=== PATIENT | female | born 1930 | race Caucasian/White ===

== ENCOUNTER 2016-09-13 14:06 | Inpatient (IN) | payer MEDICARE, BC ==
[~2016-09-13] VITALS: Ht 162.6 cm; Wt 54.0 kg
[2016-09-13] MEDS ORDERED: CIPR-262 PO (14:48)
[2016-09-13] MEDS ORDERED: FLEC50TA2 PO (14:48)
[2016-09-13] MEDS ORDERED: MELO-270 PO (14:48)
[2016-09-13] MEDS ORDERED: VALS80TA2 PO (14:50)
[2016-09-13] MEDS ORDERED: LEVO112T5 PO (14:50)
[2016-09-13] MEDS ORDERED: METO-304 PO (14:51)
[2016-09-13 16:00] VITALS: BP 143/89
--- NOTE | 2016-09-13 19:30 | NUR ---
Received report from Juliocesar MCKEON. Patient in bed comfortably, alert, verbally responsive, able to make needs know, not in acute distress. She denies any pain or discomfort at this time. Assisted to her needs. Call light placed within reach.
[2016-09-14 06:29] LABS: BASOPHILS % (AUTO) 0.7 % (0.0-2.0); EOSINOPHILS # (AUTO) 0.1 K/uL (0.0-0.7); EOSINOPHILS % (AUTO) 1.7 % (0.0-7.0); HEMATOCRIT 34.5 % (31.2-41.9); LYMPHOCYTES # (AUTO) 0.6 K/uL (20.0-40.0); LYMPHOCYTES % (AUTO) 8.3 % (20.5-51.5); MEAN CORPUSCULAR HEMOGLOBIN 35.1 uug (24.7-32.8); MEAN CORPUSCULAR HGB CONC 35 g/dL (32.3-35.6); MEAN CORPUSCULAR VOLUME 101.1 fL (75.5-95.3); MONOCYTES # (AUTO) 0.8 K/uL (2.0-10.0); MONOCYTES % (AUTO) 11.9 % (0.0-11.0); NEUTROPHILS # (AUTO) 5.6 K/uL (1.8-8.9); NEUTROPHILS % (AUTO) 77.4 % (38.5-71.5); PLATELET COUNT (AUTO) 177 K/uL (179-408); RED BLOOD CELL COUNT(AUTO) 3.42 MIL/uL (3.63-4.92); RED CELL DISTRIBUTION WIDTH 12.5 % (12.3-17.7); WHITE BLOOD COUNT (AUTO) 7.1 K/uL (3.8-11.8)
[2016-09-14 06:36] LABS: CALCIUM 8.7 mg/dL (8.5-10.1); CREATININE 0.7 mg/dL (0.6-1.3); POTASSIUM 3.8 mmol/L (3.5-5.1)
[2016-09-14 06:48] LABS: BAND % (MANUAL) 2 % (0-10); LYMPHOCYTES % (MANUAL) 15 % (20-40); NEUTROPHILS % (MANUAL) 70 % (42-75)
[2016-09-14 06:49] LABS: EOSINOPHILS % (MANUAL) 2 % (0-8); MONOCYTES % (MANUAL) 11 % (2-10)
[2016-09-14] MEDS: LEVOTHYROXINE SODIUM 112 MCG TABLET PO SCH (07:13)
--- NOTE | 2016-09-14 07:40 | NUR ---
Patient received from manager night, patient laying in bed comfortably, no signs of acute distress noted. No verbalized needs at this time, no complaints of pain. VS WNL, on RA. Safety and fall precautions maintained, bed in low position. Call light within reach.
[2016-09-14 08:00] VITALS: BP 142/87
[2016-09-14] MEDS: MELOXICAM 7.5 MG TABLET PO SCH (08:13)
[2016-09-14] MEDS: VALSARTAN 80 MG TABLET PO SCH (08:13)
[2016-09-14] MEDS: METOPROLOL SUCCINATE XL 50 MG TAB.SR.24H PO SCH (08:14)
[2016-09-14] MEDS: FLECAINIDE ACETATE 100 MG TABLET PO SCH (08:14)
[2016-09-14] MEDS ORDERED: CIPROFLOXACIN HCL 500 MG PO SCH (09:00)
[2016-09-14] MEDS ORDERED: FLECAINIDE ACETATE 50 MG PO SCH (09:00)
--- NOTE | 2016-09-14 12:30 | NUR ---
Patient given tramadol 1 tab for complaints of pain 12/28. Patient going to PT session, safety and fall precautions maintained while transferring to gym.
--- NOTE | 2016-09-14 13:00 | NUR ---
Informed by patient and family members (daughter and ) that patient received 1 tab [place] this morning at 1030, unwitnessed, without notification to any staff. VS WNL, no signs of hypotension or overdose. Patient AAOx4, no complaints of dizziness or confusion. Dr. Orr notified, verified notification. No further orders.
[2016-09-14 20:15] VITALS: BP 108/52
--- NOTE | 2016-09-15 01:07 | NUR ---
1900 Received patient in bed, alert, verbally responsive, not in acute distress. She denies any pain or discomfort at this time. Patient 4 pill containers (valsartan, flecainide, metoprolol and levothyroxine) of patient's own medications at bedside and per patient her family brought it in. Informed patient that no medications should be kept at bedside for safety and that it will be kept at pharmacy per hospital policy. Patient verbalized understanding and agreed. Gave patient's own medications to pharmacy care of [place]. [address] Dr. Orr saw patient with no new order. Assisted patient with her needs. Call light placed within reach and reminded to always use call light for assistance.
[2016-09-15 03:57] VITALS: BP 129/74
[2016-09-15] MEDS: LEVOTHYROXINE SODIUM 112 MCG TABLET PO SCH (07:05)
[2016-09-15] MEDS: MELOXICAM 7.5 MG TABLET PO SCH (08:28)
[2016-09-15] MEDS: FLECAINIDE ACETATE 100 MG TABLET PO SCH ×2 (08:28→20:32)
[2016-09-15] MEDS: VALSARTAN 80 MG TABLET PO SCH (08:32)
[2016-09-15] MEDS: TRAMADOL HCL 50 MG TABLET PO PRN ×4 (08:33→13:42)
[2016-09-15] MEDS: METOPROLOL SUCCINATE XL 50 MG TAB.SR.24H PO SCH (08:35)
--- NOTE | 2016-09-15 14:51 | NUR ---
DAILY NOTES IN BED RESTING QUIETLY WITH CPM GOING [facility]. UP FOR THERAPY THIS AM [facility]. UP OOB TO BRX2 [facility]. OOB WITH LEG IMMOBILIZER IN PLACE. MEDICATED FOR PAIN PRIOR TO AM THERAPY AND AGAIN DURING AFTERNOON THERAPY WITH 50MG TRAMADOL EACH TIME
--- NOTE | 2016-09-15 19:30 | NUR ---
RECEIVED PATIENT LYING QUIETLY IN BED RESTING WITHOUT C/O LEFT KNEE PAIN. ASSISTED TO BATHROOM WITH WALKER AND CONTACT GUARD ASSIST.ABLE TO PULL UNDERWEAR DOWN, WIPE HERSELF, AND PULL UNDERWEAR UP INDEPENDENTLY.ABLE TO INDEPENDENTLY PULL HERSELF UP TO THE TOP OF THE BED WHEN RETURNING FROM THE TOILET.DOES NOT REQUEST ANYTHING FOR PAIN AT THIS TIME. cALL LIGHT WITHIN REACH AND BED ALARM ON AAT.
[2016-09-15] MEDS: DOCUSATE SODIUM 100 MG CAPSULE PO SCH (20:32)
--- NOTE | 2016-09-16 06:25 | NUR ---
SLEPT WELL THROUGH THE NIGHT. AMBULATED TO BATHROOM X3 WITH ASSISTANCE OF WALKER AND CONTACT GUARD. NEEDS MINIMAL ASSISTANCE TO STAND UP FROM BED TO WALKER IN ORDER TO HELP FLEX HER KNEE. DID NOT TAKE ANY PAIN MEDS THIS SHIFT. WAS ABLE TO SLEEP COMFORTABLY WITHOUT THE TRAMADOL. WHEN ASKED, SHE SAYS SHE ONLY HAS PAIN WHEN SHE AMBULATES TO TOILET AND NONE WHEN SHE IS BACK IN BED. CALL LIGHT WITHIN REACH
[2016-09-16] MEDS: LEVOTHYROXINE SODIUM 112 MCG TABLET PO SCH (07:06)
[2016-09-16] MEDS: TRAMADOL HCL 50 MG TABLET PO PRN ×2 (07:48→10:56)
[2016-09-16] MEDS: FLECAINIDE ACETATE 100 MG TABLET PO SCH ×2 (07:49→20:24)
[2016-09-16] MEDS: MELOXICAM 7.5 MG TABLET PO SCH (08:09)
[2016-09-16] MEDS: VALSARTAN 80 MG TABLET PO SCH (08:10)
[2016-09-16] MEDS: METOPROLOL SUCCINATE XL 50 MG TAB.SR.24H PO SCH (08:10)
[2016-09-16 08:11] VITALS: BP 123/63
--- NOTE | 2016-09-16 19:35 | NUR ---
nsg: pt received awake, alert, no acute distress noted. assisted to the bathroom using fww. dressing on left knee dry and intact. denies pain. cont to monitor.
[2016-09-16 19:46] VITALS: BP 112/57
[2016-09-16] MEDS: DOCUSATE SODIUM 100 MG CAPSULE PO SCH (20:24)
[2016-09-17] MEDS: TRAMADOL HCL 50 MG TABLET PO PRN ×3 (00:08→11:34)
--- NOTE | 2016-09-17 06:00 | NUR ---
nsg: no acute distress noted. denies discomfort. awake. all needs attended.
--- NOTE | 2016-09-17 06:00 | NUR ---
nsg: slept well throughout the night. medicated with pain med x 1.
[2016-09-17] MEDS: LEVOTHYROXINE SODIUM 112 MCG TABLET PO SCH (06:38)
--- NOTE | 2016-09-17 07:17 | NUR ---
Patient received from overnight associate, laying comfortably in bed. No signs of acute distress noted, no complaints of pain at this time. VS WNL. SCD's on both legs. Will start CPM machine after breakfast, per patient's request. No other verbalized needs at this time. Safety and fall precautions maintained. Call light within reach.
[2016-09-17 08:11] VITALS: BP 124/71
[2016-09-17] MEDS: MELOXICAM 7.5 MG TABLET PO SCH (08:41)
[2016-09-17] MEDS: FLECAINIDE ACETATE 100 MG TABLET PO SCH ×2 (08:41→20:18)
[2016-09-17] MEDS: METOPROLOL SUCCINATE XL 50 MG TAB.SR.24H PO SCH (08:41)
[2016-09-17] MEDS: VALSARTAN 80 MG TABLET PO SCH (08:42)
--- NOTE | 2016-09-17 19:40 | NUR ---
Received patient resting on her bed with no s/s of distress. No verbalization of pain at this time. Call light within reach. Encouraged to call for assistance whenever needed. Will continue to monitor.
[2016-09-17] MEDS: DOCUSATE SODIUM 100 MG CAPSULE PO SCH (20:18)
[2016-09-17 23:30] VITALS: BP 131/72
[2016-09-18] MEDS: LEVOTHYROXINE SODIUM 112 MCG TABLET PO SCH (06:25)
--- NOTE | 2016-09-18 06:54 | NUR ---
Patient resting on her bed with no s/s of distress. No complaints of pain at this time. Due meds given. Needs attended. Frequent checks done. Kept clean and comfortable. Supervised/assisted during bathroom trips. Endorsed accordingly.
--- NOTE | 2016-09-18 08:00 | NUR ---
Received patient awake in bed. No signs and symptoms of distress noted. No other complaints at this time. Call light within reach. Safety and fall precautions observed. Will continue to monitor.
[2016-09-18 08:13] LABS: CALCIUM 9.3 mg/dL (8.5-10.1); CREATININE 0.9 mg/dL (0.6-1.3); POTASSIUM 4.6 mmol/L (3.5-5.1)
[2016-09-18] MEDS: MELOXICAM 7.5 MG TABLET PO SCH (08:43)
[2016-09-18] MEDS: FLECAINIDE ACETATE 100 MG TABLET PO SCH ×2 (08:48→20:54)
[2016-09-18] MEDS ORDERED: BISACODYL 10 MG SUPP.RECT RC PRN (11:45)
--- NOTE | 2016-09-18 11:58 | NUR ---
11:45 Notified Danyel Mendoza regarding patient's concern of difficulty having bowel movement and MD ordered Dulcolax suppository 10mg per rectum PRN daily for constipation. Order carried out.
[2016-09-18] MEDS: VALSARTAN 80 MG TABLET PO SCH (12:26)
[2016-09-18] MEDS: METOPROLOL SUCCINATE XL 50 MG TAB.SR.24H PO SCH (12:26)
[2016-09-18] MEDS: TRAMADOL HCL 50 MG TABLET PO PRN (14:18)
--- NOTE | 2016-09-18 18:35 | NUR ---
Patient tolerating CPM well. No complaints at this time. Endorsed CPM therapy until 20:00 tonight. Report given to night shift supervisor
--- NOTE | 2016-09-18 19:30 | NUR ---
Received patient lying in bed with no s/s od distress. Denies pain.Call light within reach. Encouraged to call for assistance for any need to ensure safety. Will continue to monitor.
[2016-09-18] MEDS: DOCUSATE SODIUM 100 MG CAPSULE PO SCH (20:54)
[2016-09-19 00:12] VITALS: BP 118/60
[2016-09-19] MEDS: LEVOTHYROXINE SODIUM 112 MCG TABLET PO SCH (06:26)
--- NOTE | 2016-09-19 06:47 | NUR ---
Patient awake in bed with so s/s of distress. No complaints of pain. Due meds given. Call light kept within reach. Safety and comfort measures observed. Frequent checks done throughout shift. Needs attended. Supervised/assisted during bathroom trips. Endorsed accordingly.
[2016-09-19 07:33] LABS: BASOPHILS # (AUTO) 0.1 K/uL (0.0-8.0); BASOPHILS % (AUTO) 1.6 % (0.0-2.0); EOSINOPHILS # (AUTO) 0.3 K/uL (0.0-0.7); EOSINOPHILS % (AUTO) 4.8 % (0.0-7.0); HEMATOCRIT 37.8 % (31.2-41.9); LYMPHOCYTES # (AUTO) 0.9 K/uL (20.0-40.0); LYMPHOCYTES % (AUTO) 17.1 % (20.5-51.5); MEAN CORPUSCULAR HEMOGLOBIN 34.8 uug (24.7-32.8); MEAN CORPUSCULAR HGB CONC 34 g/dL (32.3-35.6); MEAN CORPUSCULAR VOLUME 101.3 fL (75.5-95.3); MONOCYTES # (AUTO) 0.7 K/uL (2.0-10.0); MONOCYTES % (AUTO) 12.4 % (0.0-11.0); NEUTROPHILS # (AUTO) 3.5 K/uL (1.8-8.9); NEUTROPHILS % (AUTO) 64.1 % (38.5-71.5); PLATELET COUNT (AUTO) 307 K/uL (179-408); RED BLOOD CELL COUNT(AUTO) 3.73 MIL/uL (3.63-4.92); RED CELL DISTRIBUTION WIDTH 12.4 % (12.3-17.7); WHITE BLOOD COUNT (AUTO) 5.5 K/uL (3.8-11.8)
--- NOTE | 2016-09-19 07:36 | NUR ---
Received patient in bed reading book, alert, verbally responsive, coherent, not in acute distress. She denies any pain or discomfort at this time. Assisted to her needs. Call light placed within reach.
[2016-09-19 07:42] LABS: CALCIUM 9.5 mg/dL (8.5-10.1); CREATININE 0.9 mg/dL (0.6-1.3); POTASSIUM 4.4 mmol/L (3.5-5.1)
[2016-09-19 08:00] VITALS: BP 105/57
[2016-09-19] MEDS: VALSARTAN 80 MG TABLET PO SCH (09:00)
[2016-09-19] MEDS: METOPROLOL SUCCINATE XL 50 MG TAB.SR.24H PO SCH (09:00)
[2016-09-19] MEDS: MELOXICAM 7.5 MG TABLET PO SCH (09:20)
[2016-09-19] MEDS: FLECAINIDE ACETATE 100 MG TABLET PO SCH ×2 (09:27→20:46)
--- NOTE | 2016-09-19 17:00 | NUR ---
BP of 103/52. KS of 71. No complaints of light headedness, chest pains, or difficult of breathing. No signs or symptoms of distress. Reji and Casey put on hold. Notified Dr. Cartre of decreased blood pressure. With no new orders just monitor patient.
--- NOTE | 2016-09-19 18:30 | NUR ---
Patient tolerated CPM with minimal pain rated as 3/10. No PRN medications given. Ensured safety and assisted patient with bathroom needs.
[2016-09-19 20:00] VITALS: BP 85/46
[2016-09-19] MEDS ORDERED: TRAMADOL HCL 50 MG TABLET PO PRN ×2 (20:00)
[2016-09-19] MEDS: DOCUSATE SODIUM 100 MG CAPSULE PO SCH (20:45)
--- NOTE | 2016-09-19 22:11 | NUR ---
Received patient awake with no s/s of distress. Verbalized absence of pain at this time. Call light within reach. Encouraged to call for assistance whenever necessary. Will continue to monitor.
[2016-09-19 23:34] VITALS: BP 127/62
[2016-09-20] MEDS: LEVOTHYROXINE SODIUM 112 MCG TABLET PO SCH (06:31)
[2016-09-20 06:32] LABS: BASOPHILS % (AUTO) 0.7 % (0.0-2.0); EOSINOPHILS # (AUTO) 0.3 K/uL (0.0-0.7); EOSINOPHILS % (AUTO) 5.5 % (0.0-7.0); HEMATOCRIT 38.1 % (31.2-41.9); LYMPHOCYTES # (AUTO) 1.3 K/uL (20.0-40.0); LYMPHOCYTES % (AUTO) 22.2 % (20.5-51.5); MEAN CORPUSCULAR HGB CONC 34 g/dL (32.3-35.6); MEAN CORPUSCULAR VOLUME 102.3 fL (75.5-95.3); MONOCYTES # (AUTO) 0.5 K/uL (2.0-10.0); MONOCYTES % (AUTO) 9.5 % (0.0-11.0); NEUTROPHILS # (AUTO) 3.7 K/uL (1.8-8.9); NEUTROPHILS % (AUTO) 62.1 % (38.5-71.5); PLATELET COUNT (AUTO) 334 K/uL (179-408); RED BLOOD CELL COUNT(AUTO) 3.72 MIL/uL (3.63-4.92); RED CELL DISTRIBUTION WIDTH 12.8 % (12.3-17.7); WHITE BLOOD COUNT (AUTO) 5.8 K/uL (3.8-11.8)
--- NOTE | 2016-09-20 06:41 | NUR ---
Patient awake, reading. No s/s of distress. Denies pain at this time. Call light kept within reach. Supervised/assisted during bathroom trips. Due meds given. Needs attended. Comfort and safety measures observed. Frequent checks done. Endorsed accordingly.
[2016-09-20 07:25] LABS: THYROID STIMULATING HORMONE 5.267 mIU/mL (0.358-3.740)
[2016-09-20 08:13] VITALS: BP 106/66
[2016-09-20 08:49] LABS: ALBUMIN 3.3 g/dL (3.4-5.0); BILIRUBIN,TOTAL 0.6 mg/dL (0.2-1.0); CALCIUM 9.6 mg/dL (8.5-10.1); MAGNESIUM 2.1 mg/dL (1.8-2.4); PHOSPHOROUS 3.4 mg/dL (2.5-4.9); POTASSIUM 4.3 mmol/L (3.5-5.1); TOTAL PROTEIN, SERUM 7.3 g/dL (6.4-8.2)
[2016-09-20] MEDS: METOPROLOL SUCCINATE XL 50 MG TAB.SR.24H PO SCH (09:00)
[2016-09-20] MEDS: FLECAINIDE ACETATE 100 MG TABLET PO SCH ×2 (09:07→21:03)
[2016-09-20] MEDS: MELOXICAM 7.5 MG TABLET PO SCH (09:07)
[2016-09-20] MEDS: FERROUS GLUCONATE 324 MG TABLET PO SCH (12:29)
--- NOTE | 2016-09-20 15:00 | NUR ---
IDT MEETING 09/20/16
[2016-09-20 15:54] VITALS: BP 97/54
--- NOTE | 2016-09-20 19:15 | NUR ---
Received report from MIKE Baeza. Patient received in bed with CPM machine on affected left knee. Tolerating well. Alert and verbally responsive. Able to make needs known. No c/o pain and discomfort. No acute distress. Patient on room air. No SOB. Patient kept clean and dry. All needs attended to promptly. Call light within reach. Will continue to monitor.
[2016-09-20] MEDS: ATORVASTATIN 20 MG TABLET PO SCH (20:58)
[2016-09-20] MEDS: DOCUSATE SODIUM 100 MG CAPSULE PO SCH (20:58)
--- NOTE | 2016-09-20 23:38 | NUR ---
Patient able to get up and walked to bathroom with walker on her own. No assistance needed. Patient's gait noted to be stead. Verbalized to patient to be careful and to take her time and to call when assistance is needed. Verbalizes understanding. All needs attended to promptly. Call light within reach. Will continue to monitor.
--- NOTE | 2016-09-21 05:29 | NUR ---
Patient awake at this time. Slept well. Walked to bathroom with walker. Tolerated well. Patient verbalized she wanted a sponge bath, so assisted patient with bath. Patient able to wash both arms, front chest area, and perineal area independently Assisted her with washing her back. She did not want to wash her lower extremities. All needs attended to promptly. Call light within reach. Will continue to monitor.
[2016-09-21] MEDS: LEVOTHYROXINE SODIUM 112 MCG TABLET PO SCH (06:12)
--- NOTE | 2016-09-21 08:00 | NUR ---
RECEIVED PT THIS AM IN NAD; VS WNL; PT A/O X4; PAIN 3/10 ON LT KNEE. NO OTHER CONCERNS FROM PT.
[2016-09-21 08:33] VITALS: BP 118/65
[2016-09-21] MEDS: ASPIRIN EC 81 MG TABLET.DR PO SCH (09:10)
[2016-09-21] MEDS: MELOXICAM 7.5 MG TABLET PO SCH (09:10)
[2016-09-21] MEDS: FERROUS GLUCONATE 324 MG TABLET PO SCH (09:10)
[2016-09-21] MEDS: METOPROLOL SUCCINATE XL 50 MG TAB.SR.24H PO SCH (09:10)
[2016-09-21] MEDS: FLECAINIDE ACETATE 100 MG TABLET PO SCH ×2 (09:12→21:25)
--- NOTE | 2016-09-21 10:30 | NUR ---
PT PLACED ON CPM AT 1030; PT WILL ATTEMPT TO KEEP ON FOR 2HRS
--- NOTE | 2016-09-21 12:15 | NUR ---
PT TAKEN OFF OF CPM; TOLERATED [id number].
--- NOTE | 2016-09-21 15:20 | NUR ---
PT PLACED ON CPM; PT WILL ATTEMPT TO STAY ON FOR 2HRS; DENIES PAIN AT THIS TIME
--- NOTE | 2016-09-21 19:00 | NUR ---
Report received from MIKE Solorio. Received patient in bed. Alert and verbally responsive. Able to make needs known. No c/o pain and discomfort at this time. No acute distress. No SOB> All needs attended to promptly. Call light within reach. Will continue to monitor.
--- NOTE | 2016-09-21 19:30 | NUR ---
PT TAKEN OFF THE [facility]. PT COMPLETED [id number]. Addendum: 09/21/16 at 1935 by NANDINI BAKER RN PT TAKEN OFF AT AT 1705
[2016-09-21] MEDS: DOCUSATE SODIUM 100 MG CAPSULE PO SCH (21:23)
[2016-09-21] MEDS: ATORVASTATIN 20 MG TABLET PO SCH (21:25)
--- NOTE | 2016-09-22 06:12 | NUR ---
Patient awake at this time. Slept comfortably all night. No acute distress. Denies any pain or discomfort. All needs attended to promptly. Call light within reach. Will continue to monitor.
[2016-09-22] MEDS: LEVOTHYROXINE SODIUM 112 MCG TABLET PO SCH (06:25)
[2016-09-22 07:51] VITALS: BP 123/64
--- NOTE | 2016-09-22 08:13 | NUR ---
Patient received from operations supervisor 2nd shift, no signs of acute distress noted. Patient resting comfortably in bed, no signs of pain noted. Respirations even and unlabored. VS WNL. Safety precautions maintained, bed in low position.
[2016-09-22] MEDS: MELOXICAM 7.5 MG TABLET PO SCH (08:47)
[2016-09-22] MEDS: FERROUS GLUCONATE 324 MG TABLET PO SCH (08:47)
[2016-09-22] MEDS: ASPIRIN EC 81 MG TABLET.DR PO SCH (08:47)
[2016-09-22 08:50] VITALS: BP 123/64
[2016-09-22] MEDS: FLECAINIDE ACETATE 100 MG TABLET PO SCH (08:50)
[2016-09-22] MEDS: METOPROLOL SUCCINATE XL 50 MG TAB.SR.24H PO SCH (08:50)
--- NOTE | 2016-09-22 15:51 | NUR ---
Discharge order received via telephone by Dr. Orr and manager case Roshni. Discharge instructions provided to patient, home medications received from pharmacy and verified with Dr. Orr. Daughter and noted at bedside, verbalized understanding of discharge. All information provided, no further questions from patient and family. Safety precautions maintained. Patient left via private car with family. VS WNL. No signs of acute distress noted.
== END 2016-09-22 18:00 | disposition home or self-care (01) | DRG 554 ==
PROVIDERS: ADMIT Physical Medicine & Rehabilitation Pain Medicine; ATTEND Physical Medicine & Rehabilitation Pain Medicine
DX: M17.12 Unilateral primary osteoarthritis, left knee (principal); I11.9 Hypertensive heart disease without heart failure; E03.9 Hypothyroidism, unspecified; Z96.652 Presence of left artificial knee joint; Z88.2 Allergy status to sulfonamides; G89.29 Other chronic pain; I48.91 Unspecified atrial fibrillation; E78.5 Hyperlipidemia, unspecified; R71.8 Other abnormality of red blood cells; E61.1 Iron deficiency
CPT/HCPCS: 36415; 82306; 83550; 83735; 84100; 84443; 85025; 97001; 97110; 97112; 97116; 97530; 97535; A4663